=== PATIENT | male | born 1970 | race Hispanic/Latino ===

== ENCOUNTER 2017-10-24 11:39 | Emergency (ER) | payer OTHER ==
[~2017-10-24 11:39] MED LIST: HYDROCODON-ACE1 EAC3 PO; PERCOCET 5-3251 EACH PO; ZOFRAN ODT4 M1 PO
--- NOTE | 2017-10-24 11:51 | ED UPPER/LOWER EXTREMITY COMPL ---
History of Present Illness General Chief Complaint: Upper Extremity Problem Stated Complaint: SEVERE SHOULDER PAIN L SIDE DOWN LEFT ARM Source: patient Exam Limitations: no limitations Allergies Coded Allergies: No Known Allergies (05/07/17) Reconcile Medications Hydrocodone/Acetaminophen (Hydrocodon-Acetaminoph 7.5-325) 7.5 MG-325 MG TABLET 1 TAB PO BID PRN PAIN Methylprednisolone. (Medrol) 4 MG TAB.DS.PK 1 DP PO AD shoulder pain 6 on day 1 then reduce by one tablet daily until gone Oxycodone HCl/Acetaminophen (Percocet 10-325 MG Tablet) 10 MG-325 MG TABLET 1 TAB PO 4 TIMES/DAY breathrough pain Triage Note: PERT PT 4 DAY HX OF L SHOULDER TO L WRIST PAIN DENIES TRAUMA DENIES IINJURY UNJBLE TO FIND COMF POSITION 7.5 MG HYDROCODONE WITHOUT EFFECT, ON PAINMANAGEMENT Triage Nurses Notes Reviewed? yes Onset: Abrupt Duration: day(s): (4), constant, continues in ED Timing: recent history Severity: moderate, severe Pain/Injury Location: Left: Shoulder. HPI: 47-year-old male comes into the emergency room for further evaluation of left shoulder pain. Pain is sharp. Radiates to his left scapular region. Pain is worse with any type or range of motion. He denies any chest pain or shortness of breath. Denies any falls or trauma. He has trouble lifting his left arm secondary to pain. Comes in for further evaluation. He sees pain management for chronic low back pain. (Saturnino Marsh) Vital Signs & Intake/Output Vital Signs & Intake/Output Vital Signs Date Time Temp Pulse Resp B/P B/P Pulse O2 O2 Flow FiO2 Mean Ox Delivery Rate 10/24 1437 98.2 90 22 170/92 99 Room Air 10/24 1150 97.0 88 22 182/107 98 (Shayan Payne DO) Past History Travel History Traveled to [place] past 21 day No Medical History Any Pertinent Medical History? see below for history Neurological: NONE EENT: NONE Cardiovascular: NONE Respiratory: NONE Gastrointestinal: NONE Hepatic: NONE Renal: L KIDNEY REMOVAL Musculoskeletal: OA Psychiatric: NONE Endocrine: NONE Blood Disorders: NONE Surgical History Surgical History: LEFT NEPHRECTOMY Psychosocial History What is your primary language Welsh Tobacco Use: Never used Family History Hx Contributory? No (Saturnino Marsh) Review of Systems Review of Systems Constitutional: Reports: no symptoms. EENTM: Reports: no symptoms. Respiratory: Reports: no symptoms. Cardiovascular: Reports: no symptoms. Gastrointestinal/Abdominal: Reports: no symptoms. Genitourinary: Reports: no symptoms. Musculoskeletal: Reports: see HPI. Skin: Reports: no symptoms. Neurological/Psychological: Reports: no symptoms. Hematologic/Endocrine: Reports: no symptoms. Immunological: Reports: no symptoms. All Other Systems: Reviewed and Negative (Saturnino Marsh) Physical Exam Physical Exam General Appearance: well developed/nourished, mild distress Head: atraumatic Eyes: Bilateral: normal appearance. Ears, Nose, Throat: normal ENT inspection, hearing grossly normal Neck: normal inspection Cardiovascular/Respiratory: no respiratory distress Back: normal inspection Shoulder Left: soft tissue tenderness, limited range of motion, tenderness over left scapular region, pain with abduction, positive apprehension test,, 5 out of 5 strength upper extremities Neurologic/Tendon: normal sensation, normal motor functions, normal tendon functions, responds to pain, no evidence tendon injury, no pulse deficit Skin: intact, normal color, warm/dry (Saturnino Marsh) Progress Differential Diagnosis: contusion, dislocation, fracture, sprain, tendon injury, rotator cuff injury Diagnostic Imaging: Viewed by Me: Radiology Read. Discussed w/RAD: Radiology Read. Radiology Impression: PATIENT: JOHAN TAYLOR PRESENT AGE : 47 PATIENT ACCOUNT NO: [id number] : 71 LOCATION: [facility] ORDERING PHYSICIAN: Saturnino ONEAL SERVICE DATE: 10/24/17 EXAM TYPE: RAD - XRY-SHOULDER COMPLETE-LEFT EXAMINATION: XR SHOULDER, LEFT CLINICAL INFORMATION: Pain. COMPARISON: None TECHNIQUE: AP external rotation, Grashey, scapular Y, and axillary views of the left shoulder. FINDINGS: The bones and soft tissues are normal. No fracture. Moderate acromioclavicular marginal osteophytosis. Glenohumeral joint is unremarkable. Anatomic with normal joint space. No abnormal soft tissue calcifications. IMPRESSION: No acute findings. Moderate acromioclavicular marginal osteophytosis. DICTATED BY: AISHA HERRERA MD DATE/ TIME DICTATED:10/24/171345 PRIVACY SPECIALIST:SOLOMON DATE/TIME TRANSCRIBED: 09/04/18 / 1346 CONFIDENTIAL, DO NOT COPY WITHOUT APPROPRIATE AUTHORIZATION. < Electronically signed in Other Vendor System> SIGNED BY: AISHA HERRERA MD 10/24/17 1350 (Saturnino Marsh) Plan of Care: Orders Procedure Date/time Status Durable Medical Equipment 10/24 1431 Active (Elmer ALMAZAN,Shayan) Departure Departure Disposition: HOME OR SELF CARE Condition: Stable Clinical Impression Primary Impression: Left shoulder pain Referrals: Darrell Ramírez MD (PCP/Family) Additional Instructions: Take Percocet for pain. Follow-up with orthopedic doctor provided. Return if any concerns worsening symptoms. Contact your pain management doctor before filling prescription for Percocet. Take Medrol Dosepak as prescribed. Please go over all results of today's visit with your primary care doctor. Contact your primary care doctor to let them know you were here in the emergency room. There may be nonspecific findings which may not be related to your visit today here in the emergency room but may require further evaluation and chronic monitoring by your primary care doctor. If you had a laceration today the chance of foreign body always remains. You should follow-up with your primary care doctor for recheck in 3-5 days for a wound check. If you had an x-ray done there is a chance that a fracture could have been missed on initial read and you should follow-up with your primary care doctor for repeat x-rays if symptoms persist. If your blood pressure was elevated here in the emergency room please have rechecked by [facility] primary care doctor within the next 48. If you were prescribed a narcotic here in the emergency room or any type of controlled substances you're not allowed to drive while taking this medication or operate any type of heavy machinery. Narcotics can make you feel lightheaded dizziness nausea and can cause constipation. You may need to cotton picker a stool softener. Thank you for choosing [facility] emergency room. Please return to the emergency room immediately if you have any other concerns worsening of symptoms. Departure Forms: Customer Survey General Discharge Information Prescriptions: Current Visit Scripts Oxycodone HCl/Acetaminophen (Percocet 10-325 MG Tablet) 1 TAB PO 4 TIMES/DAY #12 TAB Methylprednisolone. (Medrol) 1 DP PO AD #1 DP 6 on day 1 then reduce by one tablet daily until gone Comments 10/24/2017 4:07:42 PM Patient clinically looks well. Patient is no apparent distress. Nontoxic- appearing. Symptoms are most consistent with musculoskeletal issue. Follow-up with primary care doctor. Pain is reproducible. Worse with range of motion. Cervical radiculopathy versus muscle strain versus rotator cuff injury. Patient understands and agrees with plan of care. Patient was seen and evaluated by Dr. Payne. 10-15 minutes spent discussing plan of care with patient. He was told that he needs a follow-up with his PCP. Outpatient MRI of cervical spine and possibly shoulder. I explained to him that my resources are limited and I cannot get an MRI today. They're not even here in the hospital and this is not emergent imaging is not needed to be done on emergent basis. He has no motor deficits. (Saturnino Marsh) PA/MARZIPAN MOLDER Co-Sign Statement Statement: ED Attending supervision documentation- [X] I saw and evaluated the patient. I have also reviewed all the pertinent lab results and diagnostic results. I agree with the findings and the plan of care as documented in the PA's/MARZIPAN MOLDER's documentation. [] I have reviewed the ED Record and agree with the PA's/MARZIPAN MOLDER's documentation. [X] Additions or exceptions (if any) to the PAs/MARZIPAN MOLDER's note and plan are summarized below: The patient was very distraught about his pain and unclear about where to go next. I discussed his case with KIMMY Wallace and evaluated him myself. I feel that neurogenic, radicular pain is a distinct possibility and he may require an MRI and/or even a facet injection. He understands this and he will follow-up with his sign writer letterer or painter for reevaluation and further imaging. (Shayan Payne DO)
--- NOTE | 2017-10-24 13:53 | RADIOLOGY REPORT ---
EXAMINATION: XR SHOULDER, LEFT CLINICAL INFORMATION: Pain. COMPARISON: None TECHNIQUE: AP external rotation, Grashey, scapular Y, and axillary views of the left shoulder. FINDINGS: The bones and soft tissues are normal. No fracture. Moderate acromioclavicular marginal osteophytosis. Glenohumeral joint is unremarkable. Anatomic with normal joint space. No abnormal soft tissue calcifications. IMPRESSION: No acute findings. Moderate acromioclavicular marginal osteophytosis.
[2017-10-24 14:37] VITALS: BP 170/92
[2017-10-24] MEDS ORDERED: MEDROL4 M2 PO (14:50)
[2017-10-24] MEDS ORDERED: PERCOCET 10-321 EACH PO (14:50)
== END 2017-10-24 14:55 ==
LOC: ERH 11:39
DX: M25.512 Pain in left shoulder (principal)
CPT/HCPCS: 73030-LT